=== PATIENT | female | born 2000 | race Caucasian/White ===

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

== ENCOUNTER 2023-09-18 15:07 | Emergency (ER) | payer OTHER ==
[~2023-09-18] VITALS: Ht 154.9 cm; Wt 50.0 kg
[2023-09-18 15:11] VITALS: TEMP 98
[2023-09-18] MEDS ORDERED: NS 1,000 ML IV ONE (16:30)
[2023-09-18 16:45] LABS: COLLECTION METHOD CLEAN CATCH
[2023-09-18 16:50] LABS: BASO % 0.4 % (0.0-2.0); EOS # 0.1 K/mm3 (0.0-0.7); EOS % 0.5 % (0.0-4.0); GRAN # 6.5 K/mm3 (1.4-6.5); GRAN % 70.5 % (42.2-75.2); HEMATOCRIT 42.5 % (35.0-45.0); HEMOGLOBIN 14.5 g/dl (12.0-15.0); LYMPH # 1.8 K/mm3 (1.2-3.4); LYMPH % 19.6 % (20.0-51.0); MEAN CELL VOLUME 88 fl (80.0-95.0); MEAN CORPUSCULAR HEMOGLOBIN 30 pg (26-32); MEAN CORPUSCULAR HGB CONC 34 g/dl (33.0-37.0); MEAN PLATELET VOLUME 9.8 fl (7.4-10.4); MONO # 0.8 K/mm3 (0.1-0.6); MONO % 8.6 % (1.7-9.3); PLATELET COUNT 295 K/mm3 (130-400); RED BLOOD COUNT 4.82 M/mm3 (4.10-5.30); REDCELL DISTRIBUTION WIDTH-CV 12.3 % (11.5-14.5)
[2023-09-18 16:59] LABS: URINE COLOR Yellow (YELLOW)
[2023-09-18 17:00] LABS: PH 5.5 (5.0-8.5); URINE APPEARANCE Clear (CLEAR/HAZY); URINE GLUCOSE Negative (NEGATIVE); URINE KETONE 1+ (NEGATIVE); URINE PROTEIN(semi-quant) Negative (NEGATIVE)
[2023-09-18 17:01] LABS: URINE BLOOD Negative (NEGATIVE); URINE NITRATE Negative (NEGATIVE); URINE UROBILINOGEN 0.2 E.U/dL (0.2-1.0)
[2023-09-18 17:23] LABS: ALBUMIN 4.3 g/dL (3.5-5.0); BILIRUBIN,TOTAL 0.6 mg/dL (0.2-1.2); CALCIUM 9.3 mg/dL (8.4-10.2); CREATININE, serum 0.74 mg/dL (0.57-1.11); POTASSIUM 3.7 mEq/L (3.5-4.5); TOTAL PROTEIN 7.4 g/dl (6.2-8.1)
[2023-09-18] MEDS ORDERED: REGLAN 10MG10 MG/TAB PO (18:17)
[2023-09-18 18:31] VITALS: BP 100/71; PULSE 78
== END 2023-09-18 18:32 | disposition home or self-care (01) ==
LOC: COL.ER 15:07
PROVIDERS: Physician Assistant
DX: O21.9 Vomiting of pregnancy, unspecified (principal); Z3A.01 Less than 8 weeks gestation of pregnancy
CPT/HCPCS: J2765; J7030